=== PATIENT | female | born 1965 | race African-American/Black ===

== ENCOUNTER 2025-01-24 12:53 | Outpatient (AMB) | payer OTHER, SELFPAY ==
--- NOTE | 2025-01-24 11:40 | MHC.PC.OV ---
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 Accompanied by: Spouse Allergies Sulfa (Sulfonamide Antibiotics) Allergy (Intermediate, Verified 01/24/25 13:02) hives/itching Medication List - Last Reconciled 01/24/25 by Selina Hallman MD ascorbate calcium (vitamin C) 500 mg PO DAILY aspirin 81 mg PO DAILY budesonide DR-ER 3 mg PO TID calcium carbonate 500 mg PO DAILY cyanocobalamin (vitamin B-12) 1,000 mcg PO DAILY ergocalciferol (vitamin D2) 1,250 mcg PO Q2W estradiol 1 patch topical 2XW levothyroxine 75 mcg PO DAILY loperamide 4 mg PO DAILY metoprolol tartrate 25 mg PO TID multivitamin 1 tab PO DAILY oregano oil-flaxseed oil 50-25 mg caps PO riboflavin (vitamin B2) 400 mg PO DAILY rosuvastatin 5 mg PO Q OTHER DAY ubrogepant (Ubrelvy) mg PO vit [id number] 300 mcg-45 mg- 10 mcg-5 mg (Alive Immune Elderberry) tabs PO Tobacco use date assessed: 01/24/25 Dental Screening Dental Screen Date: 01/24/25 Did you have a dental visit in the last 12 months?: Yes Did you have a dental problem in the last 6 months where you did not have access to dental care?: No Was dental information given to patient?: Patient has dentist HPI HPI Comments History of Present Illness Details The patient is a 59-year-old female presenting for physical and to reestablish care. Microscopic Colitis: Long-standing diagnosis, managed through diet and medication, reducing flare-ups. Established with Dr. Felisha MOE at [facility] GI Left wrist tendinitis: Tendon injury evaluated at orthopedics urgent care, used a brace prn. Pain in left hand attributed to lifting; managed with home stretching exercises. Stye: Previously treated with prescribed cream; self-managed recent symptoms. Potential Cardiac Concerns: Reports of tightness potentially linked to stress. Has history of vasospasms, notes symptoms have been more noticeable over the past month. No SOB. Hypothyroidism- stable on levothyroxine Hyperlipidemia- on statin Care Team GI- Dr. Begum Endocrinology- Dr. Selina Duque SHERIFFS OFFICER-Dr. Selina Conde Neurology- Dr. Young Health Maintenance/Diagnostic Results: - Colonoscopy performed with normal results - upcoming mammogram appt Review of Systems - Gen: no fatigue -Cardiovascular: per hpi -Pulm: no sob - Abd: negative - Extremities: no edema Physical Exam General: NAD Chest: CTABL. Card: normal s1, s2, soft murmur across precordium Abd: SNTND, +BS Extremities: no edema bilaterally Neuro: AOX3 Assessment and Plan 1. Microscopic Colitis - Maintain current management 2. Left wrist tendinitis - Continue current bracing protocol 3.. Chest pain -EKG shows NSR, normal axis. Due to history of vasospasms and risk factors will obtain stress test 4. Hypothyroidism- continue levothyroxine 5. Hyperlipidemia- continue statin Discussion Notes I discussed the current management and treatment plans with the patient, including the need for an EKG today to assess cardiac concerns and following up with a stress test. We reviewed the use of dietary measures for colitis management, the effectiveness of the brace for tendinitis. The patient is to continue using the prescribed ophthalmologic cream as necessary. Patient Instructions - Continue with current dietary practices to manage colitis - Use the brace for tendinitis - Perform home exercises to alleviate hand pain [facility] Medical History (Updated 01/24/25 @ 16:56 by Selina Hallman MD) Routine adult health maintenance Chest pain Migraine B12 deficiency Microscopic colitis Hyperlipidemia Hypothyroid Surgical History (Updated 01/23/25 @ 16:32 by Alexandra Peterson) History of colonoscopy (~02/03/24) Family History (Updated 01/24/25 @ 14:03 by Selina Hallman MD) Other Coronary artery disease Social History Housing: House Patient Tobacco Use Status: Never used Tobacco e-Cigarette/Vaping Use: Never Used service: No Current occupational status: employed 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 1. Little interest or pleasure in doing things: not at all 2. Feeling down, depressed, or hopeless: not at all 3. Trouble falling or staying asleep, or sleeping too much: not at all 4. Feeling tired or having little energy: not at all 5. Poor appetite or overeating: not at all 6. Feeling bad about yourself - or that you are a failure or have let yourself or your family down: not at all 7. Trouble concentrating on things, such as reading the newspaper or watching television: not at all 8. Moving or speaking so slowly that other people could have noticed. Or the opposite - being so fidgety or restless that you have been moving around a lot more than usual: not at all 9. Thoughts that you would be better off or of hurting yourself in some way: not at all Total score: 0 Source: Developed by Drs. Jose Kelly, Nu Ponce, Goyo Gould and colleagues, with an educational gisselle from [employer]. Thrive Questionnaire Date Thrive assessed: 01/24/25 I am a: Patient What is your living situation today?: I have a steady place to live Within the past 12 months, did the food you bought not last and you didn't have the money to get more?: Never true Within the past 12 months, did you worry whether your food would run out before you got money to buy more?: Never true Do you have trouble paying for medicines?: No Do you have trouble getting transportation to medical appointments?: No Do you have trouble paying your heating and electricity bill?: No (sometimes) Do you have trouble taking care of your child, family member or friend?: No Do you have trouble with day-to-day activities such as bathing, preparing meals, shopping, managing finances, etc.?: No Are you currently unemployed and looking for a job?: No Are you interested in more education?: No THRIVE Score: 0 AUDIT C Alcohol Use Questionnaire (AUDIT-C) 1. How often do you have a drink containing alcohol?: Monthly or less 2. How many drinks containing alcohol do you have on a typical day when you are drinking?: 1 or 2 3. How often do you have six or more drinks on one occasion?: Never Total Score: 1 WILMAR-7 AMB Questionnaire WILMAR-7 Date WILMAR - 7 assessed: 01/24/25 Feeling nervous, anxious, or on edge: 0 = Not at all Not being able to stop or control worryin = Not at all Worrying too much about different things: 0 = Not at all Trouble relaxin = Not at all Being so restless that it is hard to sit still: 0 = Not at all Becoming easily annoyed or irritable: 0 = Not at all Feeling afraid as if something awful might happen: 0 = Not at all Total WILMAR-7 score (0-4 normal; 5-9 mild; 10-14 moderate; 15-21 severe): 0 Source: Developed by Drs. Jose Kelly, Nu Ponce, Goyo Gould and colleagues, with an educational gisselle from [employer]. Physical exam (Primary Care) Vital Signs: Last Vital Signs Temp 97.8 F 01/24/25 12:55 Pulse 78 01/24/25 12:55 Resp 16 01/24/25 12:55 BP 118/70 01/24/25 12:55 Pulse Ox 98 01/24/25 12:55 Oxygen Delivery Method Room Air 01/24/25 12:55 BMI result Body Mass Index 21.2 Tobacco/Smoking Status: Tobacco use Status Tobacco use date assessed 01/24/25 01/24/25 11:41 Patient Tobacco Use Status Never used Tobacco 01/24/25 13:06 e-Cigarette/Vaping Use Never Used 01/24/25 13:06 PHQ-9: PHQ-9 Score PHQ-9: Total score 0 01/24/25 15:27 Thrive Assessment: Date of Thrive Assessment Date Thrive assessed 01/24/25 01/24/25 15:27 Coding Level of Care Code Est Pt Prev Care 40-64y(77304) Diagnoses Other chest pain R07.89 Chest pain type: other chest pain Migraine G43.909 Migraine type: unspecified Hyperlipidemia, unspecified hyperlipidemia type E78.5 Hyperlipidemia type: unspecified Microscopic colitis, unspecified microscopic colitis type K52.839 Microscopic colitis type: unspecified Acquired hypothyroidism E03.9 Hypothyroidism type: acquired Routine adult health maintenance Z00.00 Assessment & Plan Assessment & Plan (1) Chest pain: Code(s): R07.9 - Chest pain, unspecified Category: Medical Qualifiers: Chest pain type: other chest pain Qualified Code(s): R07.89 - Other chest pain (2) Migraine: Code(s): G43.909 - Migraine, unspecified, not intractable, without status migrainosus Category: Medical Qualifiers: Migraine type: unspecified (3) Hyperlipidemia: Code(s): E78.5 - Hyperlipidemia, unspecified Category: Medical Qualifiers: Hyperlipidemia type: unspecified Qualified Code(s): E78.5 - Hyperlipidemia, unspecified (4) Microscopic colitis: Code(s): K52.839 - Microscopic colitis, unspecified Category: Medical Qualifiers: Microscopic colitis type: unspecified Qualified Code(s): K52.839 - Microscopic colitis, unspecified (5) Hypothyroid: Code(s): E03.9 - Hypothyroidism, unspecified Category: Medical Qualifiers: Hypothyroidism type: acquired Qualified Code(s): E03.9 - Hypothyroidism, unspecified (6) Routine adult health maintenance: Code(s): Z00.00 - Encounter for general adult medical examination without abnormal findings Category: Medical Plan - Maintain diet for colitis - Use brace and exercise for hand prn - Stress test to further evaluate chest pain Orders: Orders Complete Blood Count Auto Diff Today E03.9 - Hypothyroidism, unspecified, E78.5 - Hyperlipidemia, unspecified, K52.839 - Microscopic colitis, unspecified Lipid Panel Today E03.9 - Hypothyroidism, unspecified, E78.5 - Hyperlipidemia, unspecified, K52.839 - Microscopic colitis, unspecified TSH reflex Free T4 Today E03.9 - Hypothyroidism, unspecified, E78.5 - Hyperlipidemia, unspecified, K52.839 - Microscopic colitis, unspecified Vitamin B12 Today E53.8 - Deficiency of other specified B group vitamins Comprehensive Met. Panel Today E03.9 - Hypothyroidism, unspecified, E78.5 - Hyperlipidemia, unspecified, K52.839 - Microscopic colitis, unspecified Creatine Kinase Total Today E03.9 - Hypothyroidism, unspecified, E53.8 - Deficiency of other specified B group vitamins, E78.5 - Hyperlipidemia, unspecified, G43.909 - Migraine, unspecified, not intractable, without status migrainosus, K52.839 - Microscopic colitis, unspecified AMB EKG-In Office Today R07.9 - Chest pain, unspecified NM cardiolite stress test Today R07.9 - Chest pain, unspecified Medications: New aspirin 81 mg PO DAILY 90 tabs 3RF rosuvastatin 5 mg PO Q OTHER DAY 45 tabs 3RF metoprolol tartrate 25 mg PO TID 270 tabs 3RF riboflavin (vitamin B2) 400 mg PO DAILY 90 tabs 3RF
[2025-01-24 12:55] VITALS: BP 118/70; PULSE 78; RESP 16; TEMP 36.6; O2SAT 98; BMI 21.2
--- OUTSIDE RECORDS SUMMARY | 2025-01-24 16:15 | XMS_ITS | Encounter Summary ---
Author Organization [facility] Address [address] [place] [address] Care Team Providers Care Liquor Inspector Name Role Phone Unavailable Primary Care Provider Unavailabl e Encounter Details Date Type Department Care Team (Late st Contact Info) Description 02/04/2024 Lab Requisition [facility] [address] [facility] [place] [address] Astrid Begum MD [address] [place] [address] Encounter for screening for malignant neoplasm of colon Social History Tobacco Use Types Packs/Day Years Used Date Smoking Tobacco: Never Assessed Comments Unknown Sex and Gender Information Value Date Recorded Sex Assigned at Not on file Legal Sex Female 11:39 AM EDT Gender Identity Not on file Sexual Orientation Not on file documented as of this encounter Plan of Treatment Not on file documented as of this encounter Procedures Procedure Name Priority Date/Time Associated Diagnosis Comments TISSUE EXAM Routine 02/03/2024 Encounter for screening for malignant neoplasm of colon documented in this encounter Results * Tissue Exam (02/03/2024) Final Diagnosis A. Colon, random biopsy: Colonic mucosa with increased intraepithelial inflammatory cells, mucosal damage, and thickened collagen membrane, compatible with collagenous colitis. 4:28 PM [facility] Comment Trichrome stain is performed to evaluate the basement membrane and is interpreted as abnormal, supporting the morphologic diagnosis. Control stains appropriately. Elevator Dispatcher slide(s) from this case have been presented at Anatomic Pathology Intradepartmental Review Conference on 02/08/24. 4 4:28 PM EST [facility] Clinical Information Screening for colorectal malignant neoplasm. Provided history of lymphocytic colitis / colitis. 4 4:28 PM EST [facility] Gross Description A. Colon, random: Labeled with the patient's name and information. Received in formalin, are seven irregular soft, esteban tissue fragments, approximately ranging from less than 0.1 cm to 0.6 cm in greatest diameters, which are wrapped in paper and submitted in toto in one cassette, seven pieces, multiple levels. Please note: Small tissue fragments may not survive processing. 4:28 PM EST [facility] Disclaimer NOTE: The immunohistochemical tests were developed and their performance characteristics were determined by [facility]. They have not been cleared or approved by the U.S. Food and Drug Administration. The FDA has determined that such clearance or approval is not necessary. These tests are used for clinical purposes. They should not be regarded as investigational or for research. This laboratory is certified under the Clinical Laboratory Improvement Amendments of 1988 (CLIA) as qualified to perform high complexity clinical laboratory testing. (controls appropriate) Unless otherwise specified, all tissue is 10% NB formalin fixed and paraffin embedded. 4 4:[address] [facility] Tissue Colon structure / Unknown 02/03/2024 02/04/2024 6:16 AM EST Astrid Begum MD LAB PATHOLOGY ORDERABLES Final Result [facility] [address] [place] [address], documented in this encounter Visit Diagnoses Diagnosis Encounter for screening for malignant neoplasm of colon documented in this encounter
--- OUTSIDE RECORDS SUMMARY | 2025-01-24 16:16 | XMS_ITS | Clinical Summary ---
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 Active cyanocobalamin (VITAMIN B-12) 1000 MCG tablet Take 1,000 mcg by mouth daily. Active ergocalciferol (VITAMIN D2,DRISDOL) 69532 units Cap Take 50,000 Units by mouth once a week. On Thursday. Active estradiol (VIVELLE-DOT) 0.05 MG/24HR external patch Place 1 patch on the skin 2 (two) times a week. On Thursday and . Active levothyroxine (SYNTHROID, LEVOTHROID) 75 MCG tablet Take 75 mcg by mouth daily. Active loperamide (IMODIUM A-D) 2 MG capsule Take 2 mg by mouth daily as needed (for loose stool.). Active metoPROLOL TARTRATE (LOPRESSOR) 25 MG tablet Take 50 mg by mouth every morning. Active metoPROLOL TARTRATE (LOPRESSOR) 25 MG tablet Take 25 mg by mouth every evening. Active nortriptyline (PAMELOR) 10 MG capsule Take 10 mg by mouth nightly as needed for sleep. Active Riboflavin 400 MG Tab Take 400 mg by mouth daily. Active rosuvastatin (CRESTOR) 5 MG tablet Take 5 mg by mouth every other day. Active Calcium Carb-Cholecalci ferol (CALCIUM + D3 PO) Take 1 tablet by mouth daily. Active acetaminophen (TYLENOL) 500 MG tablet Take 500 mg by mouth 4 times daily (every 6 hours) as needed for mild pain. Active Active Problems Problem Noted Date Diagnosed Date TIA (transient ischemic attack) 10/09/2019 Hypothyroid 10/09/2019 H/O angina pectoris 10/09/2019 Migraine 10/09/2019 Hypokalemia 10/09/2019 Nausea & vomiting 10/09/2019 Syncope 10/09/2019 Focal neurological deficit 10/09/2019 EKG abnormalities 10/09/2019 Microcytic anemia 10/09/2019 Hyperlipemia 10/09/2019 Substance abuse 10/09/2019 Family History Medical History Relation Name Comments No Known Problems Brother 2 No Known Problems Brother 3 Heart attack Father Heart disease Mother Heart disease Sister No Known Problems Son 1 No Known Problems Son 2 No Known Problems Son 3 Relation Name Status Comments Brother 1 Alive Brother 2 Alive Brother 3 Alive Father Mother Alive Sister Son 1 Alive Son 2 Alive Son 3 Alive Social History Tobacco Use Types Packs/Day Years Used Date Smoking Tobacco: Never Smokeless Tobacco: Never Alcohol Use Standard Drinks/Week Comments Yes 0 (1 standard drink = 0.6 oz pure alcohol) social drinks,last drink just before arrival Comments Unknown Sex and Gender Information Value Date Recorded Sex Assigned at Not on file Legal Sex Female 12:17 AM EDT Gender Identity Not on file Sexual Orientation Not on file Last Filed Vital Signs Vital Sign Reading Time Taken Comments Blood Pressure 115/75 10/10/2019 3:32 PM EDT Pulse 75 10/10/2019 3:32 PM EDT Temperature 36.7 C (98 F) 10/10/2019 3:32 PM EDT Respiratory Rate 16 10/10/2019 3:32 PM EDT Oxygen Saturation 98% 10/10/2019 3:32 PM EDT Inhaled Oxygen Concentration - - Weight 65.9 kg (145 lb 4.8 oz) 10/09/2019 12:31 AM EDT Height - - Body Mass Index - - Plan of Treatment Health Maintenance Due Date Last Done Comments Hepatitis C Virus Screening 1965 HIV Screening 02/05/1977 DTaP/Tdap/Td Vaccines (1 - Tdap) 02/05/1983 Pap Smear (Ages 21-65) 02/05/1985 Mammogram 2004 Colonoscopy 02/05/2009 Pneumococcal Vaccines 50+ (1 of 1 - PCV) 02/05/2014 Zoster (Shingles) Vaccine (1 of 2) 02/05/2014 Influenza Vaccine 10/28/2024 COVID-19 Vaccine (1 - 2023-2 5 season) 2024 RSV Vaccine 50 years and old er and Patients (1 - 1-dose 75+ series) 02/05/2039 Hepatitis B Vaccines Aged Out No long er eligible based on patient's age to complete this topic Insurance [facility] Advance Directives * Full Code (Latest Code Status on File) Date Activated Date Inactivated Comments 10/09/2019 5:09 AM Care Teams Cement Storage Worker Relationship Specialty Start Date End Date Pcp, No PCP - General General Medicine 10/09/19
--- OUTSIDE RECORDS SUMMARY | 2025-01-24 16:16 | XMS_ITS | Clinical Summary ---
Author Organization [address] Address [address] [place] [phone] Phone Care Team Providers Care Gas Producer Name Role Phone Unavailable Primary Care Provider Unavailabl e Medications budesonide DR (ENTOCORT EC) 3 mg 24 hr capsuleIndicati ons:Lymphocytic colitis TAKE 1 CAPSULE BY MOUTH THREE TIMES A DAY 270 capsule 1 11/29/2024 Active loperamide (IMODIUM) 2 mg capsuleIndicati ons:Lymphocytic colitis TAKE 2 CAPSULES IN THE MORNING AND 1 CAPSULE IN THE EVENING. 90 capsule 5 12/19/2024 Active Active Problems Problem Noted Date Diagnosed Date Lymphocytic colitis 02/26/2024 Social History Tobacco Use Types Packs/Day Years Used Date Smoking Tobacco: Never Assessed Comments Unknown Sex and Gender Information Value Date Recorded Sex Assigned at Not on file Legal Sex Female 11:39 AM EDT Gender Identity Not on file Sexual Orientation Not on file Plan of Treatment Health Maintenance Due Date Last Done Comments Breast Cancer Screening 1965 Colorectal Cancer Screening: Colonoscopy 1965 Cervical Cancer Screening: P ap Smear 02/05/1985 Zoster Vaccines (1 of 2) 02/05/2014 Cholesterol Screening (Lipid Panel) 01/23/2024 HIV Screening 01/23/2024 Hepatitis C Screening 01/23/2024 Social Influencers of Health Screening 01/23/2024 Depression Screening 03/30/2024 COVID-19 Vaccine (1 - 2023-2 5 season) 2024 Influenza Vaccine (#1) 2024 7, 01/16/2016 DTaP,Tdap,and Td Vaccines (3 - Td or Tdap) 03/18/2031 03/18/2021, 05/13/2010 RSV Immunization Adult Patients (1 - 1-dose 75+ series) 02/05/2039 Pneumococcal Vaccine: 50+ Years Completed 10/23/2021 MMR Vaccines Aged Out 07/02/2023 No longer eligi ble based on patient's age to complete this topic Hepatitis B Vaccines Completed 06/08/2024, 01/04/2024, 11/09/2023 HIB Vaccines Aged Out No longer eligi ble based on patient's age to complete this topic HPV Vaccines Aged Out No longer eligi ble based on patient's age to complete this topic Hepatitis A Vaccines Aged Out No long er eligible based on patient's age to complete this topic IPV Vaccines Aged Out No longer eligi ble based on patient's age to complete this topic Meningococcal ACWY Vaccine Aged Out N o longer eligible based on patient's age to complete this topic Meningococcal B Vaccine Aged Out No l onger eligible based on patient's age to complete this topic RSV Immunization Patients Under 20 months Aged Out No longer eligible b ased on patient's age to complete this topic Varicella Vaccines Aged Out No longer eligible based on patient's age to complete this topic Insurance
== END 2025-01-24 14:56 | disposition home or self-care (01) ==
LOC: HO.HMCHD 12:53
PROVIDERS: PCP Internal Medicine; Visit Provider Internal Medicine
DX: Z00.00 Encounter for general adult medical examination without abnormal findings (principal); R07.89 Other chest pain; G43.909 Migraine, unspecified, not intractable, without status migrainosus; E78.5 Hyperlipidemia, unspecified; K52.839 Microscopic colitis, unspecified; E03.9 Hypothyroidism, unspecified

== ENCOUNTER → 2025-03-06 08:52 | Outpatient (REF) | payer OTHER, SELFPAY ==
--- NOTE | ~2025-03-06 | NM_ITS ---
EXERCISE MYOCARDIAL PERFUSION STUDY INDICATION: Chest pain to evaluate for myocardial ischemia TECHNIQUE: The patient was brought in for an exercise perfusion study on 03/06/2025. Patient performed exercise as per Jr protocol and was injected 25 mCi of sestamibi once target heart rate was achieved. Images were obtained using the SPECT gamma camera interlaced with the gating device. Images were obtained in supine position. Resting perfusion study was performed on 03/07/2025. Patient was administered 25 mCi of sestamibi intravenously at rest. Images were then obtained in supine position. Images were processed with the software and compared side to side in short axis, horizontal long axis and vertical long axis views. Images obtained without without CT attenuation. Total DLP 60 mGy-cm. FINDINGS: Raw images were reviewed The stress perfusion study showed ages without without CT attenuation show normal uptake of radiotracer in all segments of the LV myocardium. The gated study shows normal LV systolic function with calculated LVEF of 74%. LV cavity is normal in size. The gated study shows normal systolic wall thickening and contraction of segments. Resting study shows attenuated corrected images show normal uptake of radiotracer in all segments of the LV myocardium with minimal thinning of the apex. Gating at rest reveals normal systolic wall motion with ejection fraction at greater than 60%. The findings are consistent with normal myocardial perfusion. NM/NM cardiolite stress test IMPRESSION: 1. Myocardial perfusion imaging study shows normal myocardial. 2. Gated LVEF is 74%. 3. Transient ischemic dilatation not present. EKG revealed positive for ischemia. Electronically signed by: Jose Hernandez MD 03/07/2025 04:48 PM [facility]
--- NOTE | 2025-03-06 08:56 | CA_ITS ---
Acquisition Time: 2025-03-06 09:06:28 Total Exercise Time: 00:05:30 Test Indications: CP Medications: ASA LEVOTHYROXINE METOPROLOL UBRELVY ROSUVASTATIN Protocol: GALI Max HR: 153 BPM 96% of Pred: 159 BPM Max BP: 140/60 mmHG Max Work Load: 7.0 METS Exercise stress test with exercise 5 mins 30 secs of Gali Protcol, achieving 91% MPHR, with reports of 2/10 left sided dull chest pain, with rare atrial couplet and triplet, with normotensive response to exercise. With downsloping ST depression inferiorly and anterolaterally with T wave inversion merting criteria for ischemia. In recovery, chest discomfort improved and pt feeling back to baseline. ST segment improved. Nuclear images pending. Will request referral to Cardiology. Test reviewed with Dr. Hernandez. Referred By: Selina Hallman Electronically Signed By: Anshul Lopez
[2025-03-06 10:39] LABS: MANUAL DIFF FLAG NO
[2025-03-06 11:16] LABS: Hematocrit 37.3 % (37.0-47.0); Hemoglobin 12.7 g/dl (12.0-16.0); Imm Gran Abs Auto 0.00 X10*3/uL (0.00-0.03); Imm Gran Pct Auto 0.0 % (0.0-0.4); Lymphocytes Absolute Auto 1.4 X10*3/uL (1.2-4.9); Mean Corpuscular HGB Conc 34.0 g/dl (31.0-35.0); Mean Corpuscular Hemoglobin 27.0 pg (27.0-33.0); Mean Corpuscular Volume 79.2 fL (80.0-98.0); NRBC Abs Auto 0.000 X10*3/uL (0.0-0.012); NRBC Pct Auto 0.0 /100WBC (0.0-0.2); Platelet Count 273 X10*3/uL (160-400); Red Blood Count 4.71 X10*6/uL (4.20-5.50); White Blood Count 3.9 X10*3/uL (4.8-10.8)
[2025-03-06 12:14] LABS: Alanine Aminotransferase 24 U/L (0-31); Albumin Level 4.6 g/dL (3.5-5.0); Alkaline Phosphatase 63 U/L (39-117); Anion Gap 8 (12-20); Aspartate Amino Transferase 19 U/L (5-31); Blood Urea Nitrogen 13 mg/dL (9-16); Calcium 9.6 mg/dL (8.4-10.2); Carbon Dioxide 31 mmol/L (22-29); Chloride 104 mmol/L (96-108); Cholesterol 186 mg/dL (<200); Estimated Glomerular Filt Rate > 60; HDL Cholesterol 60 mg/dL (>40); Potassium 4.4 mmol/L (3.3-5.1); Sodium 139 mmol/L (135-145); Total Protein 7.2 g/dL (6.5-8.0); Triglycerides 66 mg/dL (<150)
[2025-03-06 14:09] LABS: Vitamin B12 > 2000 pg/mL (200-900)
== END ==
LOC: HO.CARD 08:52
PROVIDERS: PCP Internal Medicine; Visit Provider Internal Medicine
DX: E53.8 Deficiency of other specified B group vitamins (principal); R07.9 Chest pain, unspecified; G43.909 Migraine, unspecified, not intractable, without status migrainosus; E78.5 Hyperlipidemia, unspecified; K52.839 Microscopic colitis, unspecified; E03.9 Hypothyroidism, unspecified
CPT/HCPCS: 36415; 78452; 80053; 80061; 82550; 82607; 84443; 85025; 93017; A9500

== ENCOUNTER → 2025-03-06 08:56 | Outpatient (BNV) | payer OTHER, SELFPAY | PROVIDERS: PCP Internal Medicine | DX: R07.89 Other chest pain (principal) | CPT/HCPCS: 78452; 93016; 93018 ==

== ENCOUNTER 2025-03-09 13:41 | Outpatient (AMB) | payer OTHER, SELFPAY ==
[2025-03-09 13:52] VITALS: BP 110/62; PULSE 74; BMI 22.0
--- NOTE | 2025-03-09 13:52 | A.OFFVIS_ITS ---
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 nuclear Food Manager Required: No Allergies Sulfa (Sulfonamide Antibiotics) Allergy (Intermediate, Verified 03/09/25 13:55) hives/itching Medication List - Last Reconciled 03/09/25 by DARIN Schofield ascorbate calcium (vitamin C) 500 mg PO DAILY aspirin 81 mg PO DAILY budesonide DR-ER 3 mg PO TID calcium carbonate 500 mg PO DAILY cyanocobalamin (vitamin B-12) 1,000 mcg PO DAILY ergocalciferol (vitamin D2) 1,250 mcg PO Q2W estradiol 1 patch topical 2XW levothyroxine 75 mcg PO DAILY loperamide 4 mg PO DAILY metoprolol tartrate 25 mg PO TID multivitamin 1 tab PO DAILY oregano oil-flaxseed oil 50-25 mg caps PO riboflavin (vitamin B2) 400 mg PO DAILY rosuvastatin 5 mg PO Q OTHER DAY ubrogepant (Ubrelvy) mg PO vit E-[id number]-[id number]-rsdmsc 352 300 mcg-45 mg- 10 mcg-5 mg (Alive Immune Elderberry) tabs PO HPI 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 She has experienced intermittent chest discomfort for the past 10-15 years, which she describes as a dull, achy pain in the middle of her chest that can radiate up to the left shoulder area. The discomfort is sometimes triggered by exertion or anxiety but can also occur at rest, with episodes lasting 5-10 minutes and resolving as she calms down. Approximately 10 years ago, she underwent a workup for similar chest pain which included a stress test, a nuclear stress test, and a cardiac catheterization which showed no blockages. At that time, she was diagnosed with coronary artery spasm and started on metoprolol 25 mg twice daily. A recent nuclear stress test to evaluate her chest discomfort was done on 03/06/2025 involving 5.5 minutes of exercise, during which she experienced dull left chest discomfort and showed EKG changes meeting criteria for ischemia; however, the subsequent myocardial imaging was normal. An EKG from 01/31/2025 showed normal sinus rhythm. Her past medical history is also significant for hyperlipidemia, hypothyroidism, and a history of fainting. A syncopal episode in 2019 was ultimately attributed to a complex migraine. She has a significant family history of premature coronary artery disease, with her father dying of a massive myocardial infarction at age 45 and her mother having her first of three heart attacks around age 44. She is a non-smoker, drinks alcohol socially, and maintains an active lifestyle that includes regular walking. Her current medications include aspirin, metoprolol, and rosuvastatin. 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 Review of Systems Const All systems reviewed & are unremarkable except as noted in HPI and below ENT Denies dizziness Card Reports chest pain, Reports chest pain at rest, Reports chest pain with activity, Denies rapid heart rate, Denies pedal edema, Denies edema, Denies leg edema, Denies lightheadedness, Denies palpitations, Denies dyspnea, Denies dyspnea on exertion and Denies orthopnea Resp Denies cough, Denies dyspnea and Denies dyspnea on exertion GI Denies hematochezia and Denies change in stool character Musc Denies abnormal gait, Denies limited range of motion, Denies muscle cramps, Denies muscle weakness, Denies numbness, Denies radiating pain into limb, Denies stiffness and Denies tingling Neuro Denies abnormal gait, Denies dizziness, Denies numbness and Denies tingling Endo Denies palpitations Physical Exam Vital Signs: Last Vital Signs Pulse 74 03/09/25 13:52 BP 110/62 03/09/25 13:52 BMI result Body Mass Index 22.0 Const General: cooperative, healthy appearing, comfortable and no acute distress Orientation/consciousness: patient oriented x3 Neck Neck: Yes normal visual inspection Resp Effort & Inspection: normal respiratory effort Auscultation: clear to auscultation bilaterally, no rales, no rhonchi and no wheezes Cardio Rate: regular rate Rhythm: regular rhythm Heart sounds: S1 normal heart sound present, S2 normal heart sound present, no gallops, no murmurs and no rubs Neuro General: patient oriented x3 Extrem General: Yes normal to inspection, No no pedal edema and No calf tenderness Psych Appearance: grossly normal Mental Status: mental status grossly normal Speech and movement: Normal speech and movement present Assessment & Plan Assessment & Plan (1) Chest pain: Code(s): R07.9 - Chest pain, unspecified Category: Medical Qualifiers: Chest pain type: other chest pain Qualified Code(s): R07.89 - Other chest pain Plan: Long-term complaint of Chest discomfort occurring randomly and resolving after relaxing for 5-10 minutes. She reports prior diagnosis of coronary spasm though I see no evidence to support this. Her last EKG was 01/31/2025 showing normal sinus rhythm, no acute ST or T-wave abnormalities. rate 67. Cardiac catheterization from 04/26/2023 was normal. Nuclear stress test 03/06/2025 with chest discomfort during exercise, EKG changes meeting criteria for ischemia, however normal myocardial perfusion imaging. Test results reviewed with her. 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 Continue metoprolol. We discussed the addition of amlodipine to help with possible spasm but she believes she may have had side effects from this medication in the past. Will update echocardiogram. Considering CTA of the coronaries. Cardiology follow-up 6 weeks, sooner if needed. (2) Abnormal stress test: Code(s): R94.39 - Abnormal result of other cardiovascular function study Category: Medical Plan: EKG tracing at time of stress test does show abnormalities with exercise however followed by normal myocardial perfusion imaging. (3) Hyperlipidemia: Code(s): E78.5 - Hyperlipidemia, unspecified Category: Medical Qualifiers: Hyperlipidemia type: unspecified Qualified Code(s): E78.5 - Hyperlipidemia, unspecified Plan: [place] LDL goal less than 100. Labs from 03/06/2025 showed LDL 113. At this time continue current rosuvastatin. (4) Hx of cardiac cath: Comment: 04/26/2013 normal coronary arteries Code(s): Z98.890 - Other specified postprocedural states Category: Surgical Plan: As above Plan I discussed with the patient the results of her recent nuclear stress test, explaining that while the EKG showed some changes during exercise, the imaging of her heart's blood flow was normal. I informed her that her prior cardiac catheterization from 2013 showed that her arteries were normal, which is a very positive finding. We discussed that her symptoms possibly could be related to coronary artery spasm, a diagnosis she had received in the past. I recommended a new heart ultrasound (echocardiogram) to evaluate her heart's structure and pumping function. I explained that we would gather more of her past records to better understand her history and what treatments have been tried. We agreed on a plan to follow up in approximately six weeks to review the echocardiogram results and determine the next steps. I advised her to contact the office sooner if her symptoms change or worsen. Finally, I stated that I do not believe another cardiac catheterization is necessary at this time. Orders: Orders CA echo transthoracic complete Today R07.89 - Other chest pain, R94.39 - Abnor mal result of other cardiovascular function study Patient Instructions: - We have ordered an echocardiogram, which is an ultrasound of your heart. Please schedule and complete this test. - Your follow-up appointment will be in about 6 weeks to go over your test results and discuss next steps. - If your symptoms change or get worse, please call our office sooner. Patient was informed and verbally consented to the use of an ambient scribe for clinic note documentation during this visit. Visit time spent on chart review, interview, assessment, orders, documentation. Coding Level of Care Code New Pt Level 4 (08303) Add On Problem Visit Only Diagnoses Other chest pain R07.89 Chest pain type: other chest pain Abnormal stress test R94.39 Hyperlipidemia, unspecified hyperlipidemia type E78.5 Hyperlipidemia type: unspecified Hx of cardiac cath Z98.890 Time Spent (min) 32
--- OUTSIDE RECORDS SUMMARY | 2025-03-09 20:57 | XMS_ITS | Clinical Summary ---
Author Organization [facility] Address [address] [place] [address] Care Team Providers Care Associate Spa Director Name Role Phone Pcp, No Primary Care [...] by mouth daily. Active ergocalciferol (VITAMIN D2,DRISDOL) 60800 units Cap Take 50,000 Units by mouth [...] Influenza Vaccine 10/28/2024 COVID-19 Vaccine (1 - 2024-2 6 season) 2024 RSV Vaccine 50 years and old er and Patients (1 - 1-dose 75+ series) 02/05/2039 Hepatitis B Vaccines Aged Out No long er eligible based on patient's age to complete this topic Insurance [facility] Advance Directives * Full Code (Latest Code Status on File) Date Activated Date Inactivated Comments 10/09/2019 5:09 AM Care Teams Associate Spa Director Relationship Specialty Start Date End Date Pcp, No PCP - General General Medicine 10/09/19
--- OUTSIDE RECORDS SUMMARY | 2025-03-09 20:57 | XMS_ITS | Encounter Summary ---
Author Organization [facility] Address [address] [place] [address] Care Team Providers Care Finger Lift Operator Name Role Phone Unavailable Primary Care Provider Unavailabl e Encounter Details Date Type Department Care Team (Late st Contact Info) Description 02/04/2024 Lab Requisition [facility] Main Lab [address] [place] [id number] Astrid Begum MD [address] [facility] [address] [place] [address] Encounter for screening for malignant neoplasm of [...] thickened collagen membrane, compatible with collagenous colitis. 4 4:28 PM EST [facility] at 1628 EST Comment Trichrome stain is performed to evaluate the basement membrane and is interpreted as abnormal, supporting the morphologic diagnosis. Control stains appropriately. High School Librarian slide(s) from this case have been presented at Anatomic Pathology Intradepartmental Review Conference on 02/08/24. 4 4:28 PM EST [facility] Clinical Information Screening for colorectal malignant neoplasm. Provided history of lymphocytic colitis / colitis. 4 4:28 PM EST [facility] Gross Description A. Colon, random: [...] may not survive processing. 4:28 PM EST [facility] Disclaimer NOTE: The immunohistochemical tests were developed and their performance characteristics were determined by [facility]. They have not been cleared [...] fixed and paraffin embedded. 4 4:28 PM EST [facility] Tissue Colon structure / Unknown 02/03/2024 02/04/2024 6:16 AM EST us Astrid Begum MD LAB PATHOLOGY ORDERABLES Final Result [facility] [address] [place] [address], documented in this encounter Visit Diagnoses Diagnosis Encounter for screening for malignant neoplasm of colon documented in this encounter
--- OUTSIDE RECORDS SUMMARY | 2025-03-09 20:57 | XMS_ITS | Clinical Summary ---
Author Organization [address] Address [address] [place] [id number] Phone Care Team Providers Care Fast Food Delivery Driver Name Role Phone Unavailable Primary Care Provider [...] Depression Screening 03/30/2024 COVID-19 Vaccine (1 - 2024-2 6 season) 2024 Influenza Vaccine (#1) 2024 7, [...]
== END 2025-03-09 14:39 | disposition home or self-care (01) ==
LOC: HO.HCS 13:42
PROVIDERS: PCP Internal Medicine; Visit Provider Nurse Practitioner Family
DX: R07.89 Other chest pain (principal); R94.39 Abnormal result of other cardiovascular function study; E78.5 Hyperlipidemia, unspecified; Z98.890 Other specified postprocedural states
CPT/HCPCS: 99204; G2211